=== PATIENT | female | born 1960 | race Caucasian/White ===

== ENCOUNTER → 2018-01-02 | Outpatient (CLI) | payer BC ==
--- NOTE | 2018-01-02 16:33 | Diagnostic Imaging Report ---
PROCEDURE: Frontal and lateral views of the chest. COMPARISON: None. INDICATIONS: LOW GRADE FEVER, COUGH FINDINGS: Lines/tubes: None. Lungs: The lungs are well inflated. Small bilateral peribronchial cuffing especially the left infrahilar region. There is no evidence of pneumonia or pulmonary edema. Pleura: There is no pleural effusion or pneumothorax. Heart and mediastinum: The heart and the mediastinum are normal. Bones: No acute bony abnormality. Degenerative changes in the thoracic spine. IMPRESSION: Mild bilateral peribronchial cuffing, likely viral etiology or reactive airway. No focal consolidative pneumonia. Dictated by: Spencer Hooker M.D. on 01/02/2018 at 16:36 Electronically approved by: Spencer Hooker M.D. on 01/02/2018 at 16:36
== END ==
LOC: RAD 16:02
PROVIDERS: ATTEND Urology
DX: R50.9 Fever, unspecified (principal)
CPT/HCPCS: 71046

== ENCOUNTER → 2018-03-14 | Outpatient (CLI) | payer BC ==
[~2018-03-14] MED LIST: FUROSEMIDE INJ 10 MG/ML 4 ML VIAL ONE
--- NOTE | 2018-03-14 09:49 | Diagnostic Imaging Report ---
PROCEDURE:X-RAY ABDOMEN - KUB COMPARISON:None. INDICATIONS:CALCULUS OF KIDNEY FINDINGS: Calcifications measuring 1.2 and 0.8 cm project over the upper pole of the left renal shadow, though they are superimposed over the left 11th rib. No additional suspicious calcifications project over the renal shadows or expected ureteral courses. Multiple pelvic phleboliths. Bowel gas pattern is nonobstructive. No mass effect or organomegaly. Regional skeletal structures are intact. CONCLUSION: Suspected left upper pole renal calculi measure up to 1.2 cm. Dictated by: Ar Ireland M.D. on 03/14/2018 at 9:54 Electronically approved by: Ar Ireland M.D. on 03/14/2018 at 9:54
--- NOTE | 2018-03-14 20:17 | Diagnostic Imaging Report ---
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 Lasix 40 mg was administered intravenously at 10 minutes post injection of the tracer. Report: Left kidney: Perfusion of the left kidney is prompt. The kidney has reniform shape with thinning of the renal cortex and slightly irregular contours. The kidney is mildly reduced in size. Extraction of tracer from the blood pool is decreased. Clearance of tracer from the renal parenchyma is prompt. The pelvicalyceal system does not appear dilated; the calices are slightly prominent. Physiologic pooling of tracer within the pelvicalyceal system is seen. Drainage of tracer from the pelvicalyceal system is prompt and adequate prior to administration of Lasix. No significant stasis of tracer is seen within the left ureter. Right kidney: Perfusion to the right kidney is prompt. The right kidney has a normal reniform shape. Extraction of tracer by the renal parenchyma is normal. Clearance of tracer from the renal parenchyma is prompt. The pelvicalyceal system is not dilated. Physiologic pooling of tracer within the pelvicalyceal system is seen. Drainage of tracer from the pelvicalyceal system is prompt and adequate prior to administration of Lasix. No significant stasis of tracer is seen within the right ureter. Differential renal function: The left kidney contributes 37% of total renal function and the right kidney contributes 62% (normal 43-57%). Impression: 1. Significant loss of renal parenchyma in the left kidney accounts for the decreased differential function of 37%. The function of the remaining renal parenchyma in the left kidney is generally normal. No hydronephrosis is present. No physiologically significant obstruction of the renal collecting system is present. 2. The function of the right kidney is generally normal. No hydronephrosis is present. No physiologically significant obstruction of the renal collecting system is present. Signed by: Dr. Anne Marie Burrows M.D. on 03/14/2018 8:14 PM
== END ==
LOC: NM 08:13
PROVIDERS: ATTEND Urology
DX: N20.0 Calculus of kidney (principal)
CPT/HCPCS: 74018; 78708; A9562; J1940

== ENCOUNTER → 2018-05-28 | Outpatient (CLI) | payer BC ==
--- NOTE | 2018-05-28 11:40 | Diagnostic Imaging Report ---
PROCEDURE: CT ABDOMEN AND PELVIS WITHOUT CONTRAST TECHNIQUE: The abdomen and pelvis were scanned utilizing a multidetector helical scanner from the diaphragm to the lesser trochanter after the oral administration of 250 cc of water. No IV contrast was administered per renal stone protocol. Coronal and sagittal multiplanar reformations were obtained. COMPARISON: KUB 03/14/2018. INDICATIONS: URINARY CALCULI FINDINGS: ABSENCE OF INTRAVENOUS CONTRAST DECREASES SENSITIVITY FOR DETECTION OF FOCAL LESIONS AND VASCULAR PATHOLOGY. LOWER THORAX: Patchy dependent atelectasis. HEPATOBILIARY: No focal hepatic lesions. No biliary ductal dilatation. SPLEEN: No splenomegaly. PANCREAS: No focal masses or ductal dilatation. ADRENALS: No adrenal nodules. KIDNEYS/URETERS: No hydronephrosis or solid mass lesions. There are multiple non-obstructive left sided renal stones, largest measuring up to 1 cm and 7 mm in the mid pole. Additional smaller left sided stones measure 3-4 mm. PELVIC ORGANS/BLADDER: The bladder is unremarkable. Calcified phleboliths in the pelvis. PERITONEUM / RETROPERITONEUM: No free air or fluid. LYMPH NODES: No lymphadenopathy. VESSELS: Unremarkable. GI TRACT: No distention or wall thickening. Colonic diverticulosis without CT evidence of diverticulitis. Small hiatal hernia. BONES AND SOFT TISSUES: Mild degenerative changes of the visualized spine. There is approximately 6 mm of anterolisthesis of L4 on L5. IMPRESSION: Bilateral non-obstructive renal stones. No evidence of hydronephrosis or ureteral stone. Dictated by: JOSE CRUZ JARAMILLO M.D. on 05/28/2018 at 11:49 Electronically approved by: JOSE CRUZ JARAMILLO M.D. on 05/28/2018 at 11:49
== END ==
LOC: CT 09:42
PROVIDERS: ATTEND Urology
DX: N20.0 Calculus of kidney (principal)
CPT/HCPCS: 74176

== ENCOUNTER 2018-06-28 19:56 | Inpatient (IN) | payer BC ==
[~2018-06-28] VITALS: Ht 157.5 cm; Wt 65.3 kg
--- OUTSIDE RECORDS SUMMARY | 2018-06-28 19:59 | XMS REPORT ---
Author Author [facility] Address Unknown Phone Unavailable Care Team Providers Care Archivist [employer] Name Role Phone SERGE GONZALEZ Unavailable Unavailable Problems This patient has no known problems. Allergies, Adverse Reactions, Alerts This patient has no known allergies or adverse reactions. Medications This patient has no known medications. Results Test Description Test Time Test Comments Text Results Atomic Results Result Comments CT ABDOMEN/PELVIS WO 2018-05-28 11:49:00 [place] [address] Patient Name: ANABELL GUTIERRES MR #: [id number] : 1960 Age/Sex: 58/F Req #: [id number] Adm Physician: Ordered by: SERGE GONZALEZ MD Report #: [id number] Location: CT Room/Bed: Procedure: [id number] CT/CT ABDOMEN/PELVIS WO Exam Date: 05/28/18 Exam Time: 1005 REPORT STATUS: Signed PROCEDURE: CT ABDOMEN AND PELVIS WITHOUT CONTRAST TECHNIQUE: The abdomen and pelvis were scanned utilizing a multidetector helical scanner from the diaphragm to the lesser trochanter after the oral administration of 250 cc of water. No IV contrast was administered per renal stone protocol. Coronal and sagittal multiplanar reformations were obtained. COMPARISON: KUB 03/14/2018. INDICATIONS: URINARY CALCULI FINDINGS: ABSENCE OF INTRAVENOUS CONTRAST DECREASES SENSITIVITY FOR DETECTION OF FOCAL LESIONS AND VASCULAR PATHOLOGY. LOWER THORAX: Patchy dependent atelectasis. HEPATOBILIARY: No focal hepatic lesions. No biliary ductal dilatation. SPLEEN: No splenomegaly. PANCREAS: No focal masses or ductal dilatation. ADRENALS: No adrenal nodules. KIDNEYS/URETERS: No hydronephrosis or solid mass lesions. There are multiple non-obstructive left sided renal stones, largest measuring up to 1 cm and 7 mm in the mid pole. Additional smaller left sided stones measure 3-4 mm. PELVIC ORGANS/BLADDER: The bladder is unremarkable. Calcified phleboliths in the pelvis. PERITONEUM / RETROPERITONEUM: No free air or fluid. LYMPH NODES: No lymphadenopathy. VESSELS: Unremarkable. GI TRACT: No distention or wall thickening. Colonic diverticulosis without CT evidence of diverticulitis. Small hiatal hernia. BONES AND SOFT TISSUES: Mild degenerative changes of the visualized spine. There is approximately 6 mm of anterolisthesis of L4 on L5. IMPRESSION: Bilateral non-obstructive renal stones. No evidence of hydronephrosis or ureteral stone. Dictated by: JOSE CRUZ JARAMILLO M.D. on 05/28/2018 at 11:49 Electronically approved by: JOSE CRUZ JARAMILLO M.D. 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 Lasix 40 mg was administered intravenously at 10 minutes post injection of the tracer. Report: Left kidney: Perfusion of the left kidney is prompt. The kidney has reniform shape with thinning of the renal cortex and slightly irregular contours. The kidney is mildly reduced in size. Extraction of tracer from the blood pool is decreased. Clearance of tracer from the renal parenchyma is prompt. The pelvicalyceal system does not appear dilated; the calices are slightly prominent. Physiologic pooling of tracer within the pelvicalyceal system is seen. Drainage of tracer from the pelvicalyceal system is prompt and adequate prior to administration of Lasix. No significant stasis of tracer is seen within the left ureter. Right kidney: Perfusion to the right kidney is prompt. The right kidney has a normal reniform shape. Extraction of tracer by the renal parenchyma is normal. Clearance of tracer from the renal parenchyma is prompt. The pelvicalyceal system is not dilated. Physiologic pooling of tracer within the pelvicalyceal system is seen. Drainage of tracer from the pelvicalyceal system is prompt and adequate prior to administration of Lasix. No significant stasis of tracer is seen within the right ureter. Differential renal function: The left kidney contributes 37% of total renal function and the right kidney contributes 62% (normal 43-57%). Impression: 1. Significant loss of renal parenchyma in the left kidney accounts for the decreased differential function of 37%. The function of the remaining renal parenchyma in the left kidney is generally normal. No hydronephrosis is present. No physiologically significant obstruction of the renal collecting system is present. 2. The function of the right kidney is generally normal. No hydronephrosis is present. No physiologically significant obstruction of the renal collecting system is present. Signed by: Dr. Stephanie Burrows M.D. on 03/14/2018 8:14 PM Dictated By: STEPHANIE BURROWS MD 2014 Transcribed By: JONATHAN on 03/14/182013 COPY TO: SERGE GONZALEZ MD ABDOMEN-1VIEW (KUB) 2018-03-14 09:54:00 [place] [address] Patient Name: ANABELL GUTIERRES MR #: [id number] : 1960 Age/Sex: 57/F Req #: [id number] Adm Physician: Ordered by: SERGE GONZALEZ MD Report #: [id number] Location: [place] Room/Bed: Procedure: [id number] DX/ABDOMEN-1VIEW (KUB) Exam Date: 03/14/18 Exam Time: 919 REPORT STATUS: Signed PROCEDURE: X-RAY ABDOMEN - KUB COMPARISON: None. INDICATIONS: CALCULUS OF KIDNEY FINDINGS: Calcifications measuring 1.2 and 0.8 cm project over the upper pole of the left renal shadow, though they are superimposed over the left 11th rib. No additional suspicious calcifications project over the renal shadows or expected ureteral courses. Multiple pelvic phleboliths. Bowel gas pattern is nonobstructive. No mass effect or organomegaly. Regional skeletal structures are intact. CONCLUSION: Suspected left upper pole renal calculi measure up to 1.2 cm. Dictated by: Amelia Decker M.D. on 03/14/2018 at 9:54 Electronically approved by: Amelia Decker M.D. on 03/14/2018 at 9:54 Dictated By: AMELIA DECKER MD 3 Transcribed By: TOOTIE on 03/14/18953 COPY TO: SERGE GONZALEZ MD CHEST [address], [place] [address] Patient Name: ANABELL GUTIERRES MR #: [id number] : 1960 Age/Sex: 57/F Req #: [id number] [facility] Physician: Ordered by: SERGE GONZALEZ MD Report #: [id number] Location: [facility] Room/Bed: Procedure: [id number] DX/CHEST 2 VIEWS Exam Date: 01/02/18 Exam Time: 1615 REPORT STATUS: Signed PROCEDURE: Frontal and lateral views of the chest. COMPARISON: None. INDICATIONS: LOW GRADE FEVER, COUGH FINDINGS: Lines/tubes: None. Lungs: The lungs are well inflated. Small bilateral peribronchial cuffing especially the left infrahilar region. There is no evidence of pneumonia or pulmonary edema. Pleura: There is no pleural effusion or pneumothorax. Heart and mediastinum: The heart and the mediastinum are normal. Bones: No acute bony abnormality. Degenerative changes in the thoracic spine. IMPRESSION: Mild bilateral peribronchial cuffing, likely viral etiology or reactive airway. No focal consolidative pneumonia. Dictated by: Hans Mo M.D. on 01/02/2018 at 16:36 Electronically approved by: Hans Mo M.D. on 01/02/2018 at 16:36 Dictated By: HANS MO MD 1636 Transcribed By: TOOTIE on 01/02/18 1636 COPY TO: SERGE GONZALEZ MD
--- NOTE | 2018-06-28 21:50 | Diagnostic Imaging Report ---
EXAM: CT Abdomen and Pelvis WITHOUT contrast INDICATION: Flank pain, status post lithotripsy today. COMPARISON: None. TECHNIQUE: Abdomen and pelvis were scanned utilizing a multidetector helical scanner from the lung base to the pubic symphysis without administration of IV contrast. Absence of intravenous contrast decreases sensitivity for detection of focal lesions and vascular pathology. Coronal and sagittal reformations were obtained. Routine protocol was performed. IV CONTRAST: None ORAL CONTRAST: Water COMPLICATIONS: None RADIATION DOSE: Total DLP: 316.6 mGy*cm Estimated effective dose: (DLP x 0.015 x size factor) mSv CTDIvol has been reviewed. It is below the limits set by the Radiation Protocol Committee (RPC). Dose modulation, iterative reconstruction, and/or weight based adjustment of the mA/kV was utilized to reduce the radiation dose to as low as reasonably achievable. FINDINGS: LINES and TUBES: None. LOWER THORAX: Mild bibasilar atelectasis, left greater the right. HEPATOBILIARY: No focal hepatic lesions. No biliary ductal dilation. GALLBLADDER: No radio-opaque stones or sludge. No wall thickening. SPLEEN: No splenomegaly. PANCREAS: No focal masses or ductal dilatation. Stranding in the region of the pancreatic tail also likely related to left renal findings. ADRENALS: No adrenal nodules KIDNEYS/URETERS: No hydronephrosis. No cystic or solid mass lesions. Multiple punctate calculi in the left kidney including an approximately 1.3 x 0.5 cm stone in the left interpolar region and extending into the infundibulum. Large subcapsular hematoma surrounding the left kidney measuring approximately 4.3 cm in thickness and 9.4 cm in transverse dimension. Small extracapsular hemorrhage also seen anterior perinephric space and tracking into the left pelvis. Unable to exclude superimposed urine leak in the setting of surrounding fluid. GI TRACT: No abnormal distention, wall thickening, or evidence of bowel obstruction. There are diverticula within the colon without evidence of diverticulitis. Appendix is normal. PELVIC ORGANS/BLADDER: Unremarkable. LYMPH NODES: No lymphadenopathy. VESSELS: Unremarkable. PERITONEUM / RETROPERITONEUM: No free air. Small amount of free fluid in the left pelvis and cul-de-sac BONES: There are degenerative changes in the lumbar spine. Grade 1 anterolisthesis of L4 on L5 without pars defect. SOFT TISSUES: Unremarkable. IMPRESSION: 1. Large subcapsular hematoma surrounding and compressing the left kidney with small extracapsular component extending into the left pelvis. 2. Multiple stones in the left kidney without ureteral stone or hydronephrosis. 3. Stranding in the region of the pancreatic tail also likely related to the left renal findings. If there is concern for pancreatitis, consider correlation with lipase. 4. Colonic diverticulosis. Findings discussed with Dr. Kaye on 06/28/2018 at 9:40 PM. Signed by: DR. Alec Interiano MD on 06/28/2018 9:46 PM
[2018-06-28 21:53] LABS: BASOPHILS % 0.1 % (0.0-1.0); HEMATOCRIT 32.3 % (34.2-44.1); LYMPHOCYTES # (AUTO) 0.7 (1.0-3.2); LYMPHOCYTES % 7.2 % (18.0-39.1); MEAN CORPUSCULAR HEMOGLOBIN 31.1 pg (28-32); MEAN CORPUSCULAR HGB CONC 34.1 g/dL (31-35); MEAN CORPUSCULAR VOLUME 91.2 fL (81-99); MONOCYTES # (AUTO) 0.1 (0.2-0.8); MONOCYTES % 1.2 % (4.4-11.3); NEUTROPHILS # (AUTO) 8.4 (2.1-6.9); NEUTROPHILS % 91.2 % (38.7-80.0); PLATELET COUNT 310 x10e3/uL (140-360); RED BLOOD COUNT 3.54 x10e6/uL (3.6-5.1); RED CELL DISTRIBUTION WIDTH 13.4 % (11.7-14.4)
[2018-06-28] MEDS ORDERED: MORPHINE SULFATE 2 MG/ML SYR IV STA (22:06)
[2018-06-28] MEDS ORDERED: ONDANSETRON HCL INJ 2 MG/ML VIAL IV STA (22:06)
[2018-06-28 22:10] LABS: ALANINE AMINOTRANSFERASE 15 IU/L (0-55); ALBUMIN 3.6 g/dL (3.5-5.0); ALBUMIN/GLOBULIN RATIO 1.2 (0.8-2.0); ALKALINE PHOSPHATASE 68 IU/L (40-150); ANION GAP 14.4 mmol/L (8-16); BLOOD UREA NITROGEN 15 mg/dL (7-26); BUN/CREATININE RATIO 16 (6-25); CALCIUM 9.1 mg/dL (8.4-10.2); CARBON DIOXIDE 25 mmol/L (22-29); CHLORIDE 98 mmol/L (98-107); CREATININE, SERUM 0.92 mg/dL (0.57-1.11); EST GLOMERULAR FILTRATION RATE > 60 ML/MIN (60-); GLUCOSE 260 mg/dL (74-118); POTASSIUM 3.4 mmol/L (3.5-5.1); SODIUM 134 mmol/L (136-145)
[2018-06-28] MEDS ORDERED: SODIUM CHLORIDE 0.9% 1000ML 1,000 ML IV SCH (22:15)
[2018-06-28 22:17] LABS: CLARITY,URINE CLOUDY (CLEAR)
[2018-06-28 22:18] LABS: LEUKOCYTE ESTERASE ,URINE 1+ (NEGATIVE); NITRITE,URINE NEGATIVE (NEGATIVE)
[2018-06-28 22:19] LABS: BILIRUBIN,URINE NEGATIVE (NEGATIVE); KETONES,URINE NEGATIVE (NEGATIVE); PROTEIN,URINE DIPSTICK TRACE (NEGATIVE); URINE UROBILINOGEN 0.2 mg/dL (0.2 - 1)
[2018-06-28 22:34] LABS: RBC,URINE >50 /HPF (0-5)
[2018-06-28 22:35] LABS: BACTERIA,URINE FEW /HPF; COLOR,URINE RED (YELLOW); EPITHELIAL CELLS,URINE RARE /LPF
[2018-06-28] MEDS ORDERED: ULTRAM 50MG50 MG PO (22:35)
[2018-06-28] MEDS ORDERED: TRIAMTERENE-HCTZ1 EA PO (22:35)
[2018-06-28] MEDS ORDERED: AMLODIPINE BES2.5 MG PO (22:35)
[2018-06-28] MEDS ORDERED: RANITIDINE HCL150 MG PO (22:35)
[2018-06-28] MEDS: MEROPENEM 500MG 500 MG in SODIUM CHLORIDE 0.9% 50ML 50 ML IV SCH (23:11)
[2018-06-29] VITALS (38 sets, daily range): BP systolic 105–133; BP diastolic 66–95
[2018-06-29] MEDS: MORPHINE SULFATE 2 MG/ML SYR IV PRN ×2 (02:08→17:47)
[2018-06-29] MEDS: ONDANSETRON HCL INJ 2 MG/ML VIAL IV PRN ×3 (02:08→17:47)
[2018-06-29] MEDS: SODIUM CHLORIDE 0.9% 1000ML 1,000 ML IV SCH ×2 (02:08→11:07)
[2018-06-29 02:51] LABS: HEMATOCRIT 28.3 % (34.2-44.1); HEMOGLOBIN 9.6 g/dL (12.0-16.0)
[2018-06-29 05:58] LABS: HEMATOCRIT 26.9 % (34.2-44.1)
[2018-06-29 06:20] LABS: ALANINE AMINOTRANSFERASE 12 IU/L (0-55); ALBUMIN 3.3 g/dL (3.5-5.0); ALBUMIN/GLOBULIN RATIO 1.3 (0.8-2.0); ALKALINE PHOSPHATASE 57 IU/L (40-150); BLOOD UREA NITROGEN 13 mg/dL (7-26); BUN/CREATININE RATIO 16 (6-25); CALCIUM 8.4 mg/dL (8.4-10.2); CARBON DIOXIDE 25 mmol/L (22-29); CHLORIDE 102 mmol/L (98-107); CREATININE, SERUM 0.79 mg/dL (0.57-1.11); EST GLOMERULAR FILTRATION RATE > 60 ML/MIN (60-); GLUCOSE 125 mg/dL (74-118); SODIUM 137 mmol/L (136-145)
[2018-06-29] MEDS ORDERED: MEROPENEM 500 MG VIAL ONE (10:56)
[2018-06-29] MEDS ORDERED: SODIUM CHLORIDE 0.9% 50ML 50 ML ONE (10:58)
[2018-06-29] MEDS: MEROPENEM 500MG 500 MG in SODIUM CHLORIDE 0.9% 50ML 50 ML IV SCH (11:06)
[2018-06-29 11:47] LABS: HEMATOCRIT 24.2 % (34.2-44.1); HEMOGLOBIN 8.4 g/dL (12.0-16.0)
[2018-06-29] MEDS ORDERED: MEROPENEM 500MG/ NS 50ML 50 ML IV SCH (13:45)
[2018-06-29] MEDS ORDERED: HYDROCODONE/APAP 7.5MG-325MG 1 EA TAB PO PRN (14:30)
[2018-06-29 18:10] LABS: HEMATOCRIT 26.1 % (34.2-44.1); HEMOGLOBIN 8.9 g/dL (12.0-16.0)
[2018-06-29] MEDS: SODIUM CHLORIDE 0.45% 1,000 ML IV SCH (20:30)
[2018-06-29] MEDS: MEROPENEM 500MG/ NS 50ML 50 ML IV SCH (22:27)
[2018-06-30] VITALS (8 sets, daily range): BP systolic 111–138; BP diastolic 63–83
[2018-06-30] MEDS: SODIUM CHLORIDE 0.45% 1,000 ML IV SCH (06:00)
[2018-06-30 06:16] LABS: BASOPHILS % 0.3 % (0.0-1.0); EOSINOPHILS # (AUTO) 0.1 (0.0-0.4); EOSINOPHILS % 1.2 % (0.0-6.0); HEMATOCRIT 24.5 % (34.2-44.1); HEMOGLOBIN 8.3 g/dL (12.0-16.0); LYMPHOCYTES # (AUTO) 2.4 (1.0-3.2); MEAN CORPUSCULAR HEMOGLOBIN 31.7 pg (28-32); MEAN CORPUSCULAR HGB CONC 33.9 g/dL (31-35); MEAN CORPUSCULAR VOLUME 93.5 fL (81-99); MONOCYTES # (AUTO) 0.5 (0.2-0.8); MONOCYTES % 7.1 % (4.4-11.3); NEUTROPHILS # (AUTO) 3.7 (2.1-6.9); NEUTROPHILS % 54.9 % (38.7-80.0); PLATELET COUNT 210 x10e3/uL (140-360); RED BLOOD COUNT 2.62 x10e6/uL (3.6-5.1); RED CELL DISTRIBUTION WIDTH 13.6 % (11.7-14.4)
[2018-06-30 06:37] LABS: ALANINE AMINOTRANSFERASE 8 IU/L (0-55); ALBUMIN 3.2 g/dL (3.5-5.0); ALBUMIN/GLOBULIN RATIO 1.2 (0.8-2.0); ALKALINE PHOSPHATASE 53 IU/L (40-150); ANION GAP 12.9 mmol/L (8-16); BLOOD UREA NITROGEN 10 mg/dL (7-26); BUN/CREATININE RATIO 12 (6-25); CALCIUM 8.4 mg/dL (8.4-10.2); CARBON DIOXIDE 27 mmol/L (22-29); CHLORIDE 102 mmol/L (98-107); CREATININE, SERUM 0.81 mg/dL (0.57-1.11); EST GLOMERULAR FILTRATION RATE > 60 ML/MIN (60-); GLUCOSE 100 mg/dL (74-118); SODIUM 139 mmol/L (136-145)
[2018-06-30 06:43] LABS: POTASSIUM 2.9 mmol/L (3.5-5.1)
[2018-06-30] MEDS ORDERED: POTASSIUM CHLORIDE 20MEQ/100ML 200 ML IV ONE (07:15)
[2018-06-30] MEDS ORDERED: POTASSIUM CHLORIDE 20 MEQ TAB CR PO ONE (08:00)
[2018-06-30] MEDS: MEROPENEM 500MG/ NS 50ML 50 ML IV SCH ×2 (11:00→22:23)
[2018-06-30 11:54] LABS: BASOPHILS % 0.3 % (0.0-1.0); EOSINOPHILS # (AUTO) 0.1 (0.0-0.4); HEMATOCRIT 26.5 % (34.2-44.1); HEMOGLOBIN 8.9 g/dL (12.0-16.0); LYMPHOCYTES # (AUTO) 1.5 (1.0-3.2); LYMPHOCYTES % 23.1 % (18.0-39.1); MEAN CORPUSCULAR HEMOGLOBIN 31.7 pg (28-32); MEAN CORPUSCULAR HGB CONC 33.6 g/dL (31-35); MEAN CORPUSCULAR VOLUME 94.3 fL (81-99); MONOCYTES # (AUTO) 0.4 (0.2-0.8); MONOCYTES % 5.5 % (4.4-11.3); NEUTROPHILS # (AUTO) 4.7 (2.1-6.9); NEUTROPHILS % 69.7 % (38.7-80.0); PLATELET COUNT 225 x10e3/uL (140-360); RED BLOOD COUNT 2.81 x10e6/uL (3.6-5.1); RED CELL DISTRIBUTION WIDTH 13.6 % (11.7-14.4)
[2018-06-30 12:11] LABS: ANION GAP 11.9 mmol/L (8-16); BLOOD UREA NITROGEN 9 mg/dL (7-26); BUN/CREATININE RATIO 12 (6-25); CARBON DIOXIDE 24 mmol/L (22-29); CHLORIDE 107 mmol/L (98-107); CREATININE, SERUM 0.76 mg/dL (0.57-1.11); EST GLOMERULAR FILTRATION RATE > 60 ML/MIN (60-); GLUCOSE 112 mg/dL (74-118); POTASSIUM 3.9 mmol/L (3.5-5.1); SODIUM 139 mmol/L (136-145)
[2018-06-30] MEDS: SENNOSIDES 8.6 MG TAB PO SCH ×2 (12:19→16:40)
[2018-06-30 16:49] LABS: ANION GAP 13.8 mmol/L (8-16); BLOOD UREA NITROGEN 8 mg/dL (7-26); BUN/CREATININE RATIO 11 (6-25); CARBON DIOXIDE 24 mmol/L (22-29); CHLORIDE 106 mmol/L (98-107); CREATININE, SERUM 0.72 mg/dL (0.57-1.11); EST GLOMERULAR FILTRATION RATE > 60 ML/MIN (60-); GLUCOSE 95 mg/dL (74-118); POTASSIUM 3.8 mmol/L (3.5-5.1); SODIUM 140 mmol/L (136-145)
[2018-07-01] VITALS: BP 136/85
[2018-07-01] MEDS: POTASSIUM CHL 40 MEQ in SODIUM CHLORIDE 0.45% 1,000 ML IV SCH ×2 (03:51→12:39)
[2018-07-01 04:00] VITALS: BP 136/91
[2018-07-01 06:19] LABS: BASOPHILS % 0.3 % (0.0-1.0); EOSINOPHILS # (AUTO) 0.1 (0.0-0.4); EOSINOPHILS % 1.3 % (0.0-6.0); HEMATOCRIT 26.1 % (34.2-44.1); HEMOGLOBIN 8.6 g/dL (12.0-16.0); LYMPHOCYTES # (AUTO) 1.8 (1.0-3.2); LYMPHOCYTES % 29.3 % (18.0-39.1); MEAN CORPUSCULAR HEMOGLOBIN 30.8 pg (28-32); MEAN CORPUSCULAR VOLUME 93.5 fL (81-99); MONOCYTES # (AUTO) 0.4 (0.2-0.8); MONOCYTES % 7.1 % (4.4-11.3); NEUTROPHILS # (AUTO) 3.8 (2.1-6.9); NEUTROPHILS % 61.7 % (38.7-80.0); PLATELET COUNT 241 x10e3/uL (140-360); RED BLOOD COUNT 2.79 x10e6/uL (3.6-5.1); RED CELL DISTRIBUTION WIDTH 13.7 % (11.7-14.4)
[2018-07-01 06:27] LABS: ANION GAP 11.2 mmol/L (8-16); BLOOD UREA NITROGEN 7 mg/dL (7-26); BUN/CREATININE RATIO 10 (6-25); CARBON DIOXIDE 24 mmol/L (22-29); CHLORIDE 108 mmol/L (98-107); CREATININE, SERUM 0.73 mg/dL (0.57-1.11); EST GLOMERULAR FILTRATION RATE > 60 ML/MIN (60-); GLUCOSE 101 mg/dL (74-118); MAGNESIUM 2.3 MG/DL (1.3-2.1); POTASSIUM 4.2 mmol/L (3.5-5.1); SODIUM 139 mmol/L (136-145)
[2018-07-01] MEDS ORDERED: MORPHINE SULFATE INJ 4 MG/ML INJ IV PRN (09:00)
[2018-07-01] MEDS: SENNOSIDES 8.6 MG TAB PO SCH (09:00)
[2018-07-01 09:14] VITALS: BP 137/88
[2018-07-01 09:18] VITALS: BP 137/88
--- NOTE | 2018-07-01 10:56 | Discharge Summary ---
WASTE MANAGEMENT ENGINEER: Dr. Jimmy Jackson. FINAL DIAGNOSES 1. Left kidney capsular hematoma, status post lithotripsy. 2. Acute blood loss anemia, stable now. 3. Urinary tract infection associated with hematuria. 4. Status post stone management by Dr. Jimmy Jackson. SUMMARY: A 58-year-old female status post stone management with lithotripsy. Patient subsequently developed severe pain to the left flank area. CT scan showed hematoma. She has blood loss anemia. Hemoglobin and hematocrit now are 8.6 and 26.1, which are stable. No further noticed of bleeding. The patient is stable. She is comfortable and pain controlled. Patient would like to go home and I agree. The patient may follow up with Dr. Jimmy Jackson as an outpatient. DISCHARGE MEDICATIONS: As follows: 1. Resume home medications. 2. Cipro 500 mg b.i.d. for 5 days. 3. Hemocyte +1 tablet daily. 4. Zofran ODT 4 mg sublingual q.6 p.r.n. for nausea and vomiting. 5. Tylenol No. 3 one q.6 hours p.r.n. for pain. Patient is stable, discharged home, follow up with Dr. Jimmy Jackson. Job#: [id number] NAKUL
[2018-07-01] MEDS: MEROPENEM 500MG/ NS 50ML 50 ML IV SCH (11:10)
[2018-07-01 12:00] VITALS: BP 136/85
[2018-07-01] MEDS ORDERED: CIPRO500 MG PO (12:13)
[2018-07-01] MEDS ORDERED: ZOFRAN ODT4 MG SL (12:16)
[2018-07-01] MEDS ORDERED: TYLENOL WITH C1 EACH PO (12:16)
== END 2018-07-01 13:34 | disposition home or self-care (01) | DRG 919 ==
LOC: ER 19:56 → ERHOLD 22:59 → ICU 06-29 04:08 → MED/SURG 06-29 15:24 → ICU 06-29 15:25 → MED/SURG 06-29 15:35
PROVIDERS: ADMIT Internal Medicine; ATTEND Internal Medicine
DX: N99.840 Postprocedural hematoma of a genitourinary system organ or structure following a genitourinary system procedure (principal); S37.092A Other injury of left kidney, initial encounter; S36.899A Unspecified injury of other intra-abdominal organs, initial encounter; D62 Acute posthemorrhagic anemia; E87.1 Hypo-osmolality and hyponatremia; N39.0 Urinary tract infection, site not specified; E87.6 Hypokalemia; E83.41 Hypermagnesemia; R31.9 Hematuria, unspecified; Z87.442 Personal history of urinary calculi
CPT/HCPCS: 36415; 74176; 80048; 80053; 81001; 83735; 84100; 85014; 85018; 85025; 86850; 86900; 87086; 96374; 96375; 96376; 99284; J2185; J2270; J2405; J3480; J7030

== ENCOUNTER → 2018-07-04 | Outpatient (CLI) | payer BC ==
[~2018-07-04] MED LIST changes: +AMLODIPINE BES2.5 MG PO; +CIPRO500 MG PO; -FUROSEMIDE INJ 10 MG/ML 4 ML VIAL ONE; +RANITIDINE HCL150 MG PO; +TRIAMTERENE-HCTZ1 EA PO; +TYLENOL WITH C1 EACH PO; +ULTRAM 50MG50 MG PO; +ZOFRAN ODT4 MG SL
[2018-07-04 07:49] LABS: BASOPHILS % 0.4 % (0.0-1.0); EOSINOPHILS # (AUTO) 0.1 (0.0-0.4); EOSINOPHILS % 0.8 % (0.0-6.0); HEMATOCRIT 33.3 % (34.2-44.1); HEMOGLOBIN 11.3 g/dL (12.0-16.0); LYMPHOCYTES # (AUTO) 2.4 (1.0-3.2); LYMPHOCYTES % 27.4 % (18.0-39.1); MEAN CORPUSCULAR HEMOGLOBIN 31.6 pg (28-32); MEAN CORPUSCULAR HGB CONC 33.9 g/dL (31-35); MONOCYTES % 10.7 % (4.4-11.3); NEUTROPHILS # (AUTO) 5.4 (2.1-6.9); NEUTROPHILS % 60.4 % (38.7-80.0); PLATELET COUNT 345 x10e3/uL (140-360); RED BLOOD COUNT 3.58 x10e6/uL (3.6-5.1); RED CELL DISTRIBUTION WIDTH 13.4 % (11.7-14.4)
[2018-07-04 08:05] LABS: ALANINE AMINOTRANSFERASE 9 IU/L (0-55); ALBUMIN/GLOBULIN RATIO 1.2 (0.8-2.0); ALKALINE PHOSPHATASE 88 IU/L (40-150); ANION GAP 15.2 mmol/L (8-16); BLOOD UREA NITROGEN 12 mg/dL (7-26); BUN/CREATININE RATIO 14 (6-25); CALCIUM 9.2 mg/dL (8.4-10.2); CARBON DIOXIDE 25 mmol/L (22-29); CHLORIDE 96 mmol/L (98-107); CREATININE, SERUM 0.87 mg/dL (0.57-1.11); EST GLOMERULAR FILTRATION RATE > 60 ML/MIN (60-); GLUCOSE 95 mg/dL (74-118); MAGNESIUM 2.1 MG/DL (1.3-2.1); POTASSIUM 3.2 mmol/L (3.5-5.1); SODIUM 133 mmol/L (136-145)
[2018-07-04 08:14] LABS: INR 0.88; PARTIAL THROMBOPLASTIN TIME 29.1 seconds (23.8-35.5); PROTHROMBIN TIME 12.8 seconds (11.9-14.5)
== END ==
LOC: LAB 07:37
PROVIDERS: ATTEND Urology
DX: D64.9 Anemia, unspecified (principal); N20.0 Calculus of kidney
CPT/HCPCS: 36415; 80053; 83735; 85025; 85610; 85730

== ENCOUNTER → 2018-08-07 | Outpatient (CLI) | payer BC ==
[~2018-08-07] MED LIST changes: +FUROSEMIDE INJ 10 MG/ML 4 ML VIAL ONE
--- NOTE | 2018-08-07 13:35 | Diagnostic Imaging Report ---
EXAMINATION: CT of the abdomen and pelvis without contrast. TECHNIQUE: Spiral CT images of the abdomen and pelvis were performed from the lung bases to the lesser trochanters. No intravenous contrast was given per renal stone protocol. Coronal and sagittal reformatted images were obtained. Dose modulation, iterative reconstruction, and/or weight based adjustment of the mA/kV was utilized to reduce the radiation dose to as low as reasonably achievable. Low dose reduction parameters were utilized. DLP: 603.91 mGy-cm COMPARISON: 06/28/2018 CLINICAL HISTORY:Left perinephric and subcapsular hematoma DISCUSSION: ABSENCE OF INTRAVENOUS CONTRAST DECREASES SENSITIVITY FOR DETECTION OF FOCAL LESIONS AND VASCULAR PATHOLOGY. ABDOMEN/PELVIS: LOWER THORAX: Unremarkable. HEPATOBILIARY:No focal hepatic lesions. No biliary ductal dilation. The gallbladder is normal. SPLEEN: No splenomegaly. PANCREAS: No focal masses or ductal dilatation. Pancreatic stranding is decreased. ADRENALS: No adrenal nodules. KIDNEYS/URETERS: The size of the left subcapsular/perinephric hematoma is significantly decreased compared to prior. Estimated maximal width is 3.2 cm from the lateral margin of the kidney. The amount of stone burden on the left is also diminished. PELVIC ORGANS/BLADDER: The bladder is normal. PERITONEUM/RETROPERITONEUM: No free air or fluid. LYMPH NODES: No intra-abdominal,retroperitoneal, pelvic or inguinal lymphadenopathy. VESSELS: Unremarkable GI TRACT: No distention or wall thickening. Scattered colonic diverticula. BONES AND SOFT TISSUES: No bony destructive lesions. Anterior listhesis of L4 on L5. Scattered degenerative spurring of the spine. No soft tissue abnormalities. IMPRESSION: 1. Decrease in the size of the left subcapsular renal hematoma. 2. Decrease in the stone burden on the left. Signed by: Dr. Rei De La Cruz DO on 08/07/2018 1:32 PM
--- NOTE | 2018-08-07 20:42 | Diagnostic Imaging Report ---
Renal Scan with Lasix Washout Clinical information: Renal calculi; staghorn calculus Comparison: Renal scan with Lasix 03/14/2018 Technique: Following intravenous administration of 10 mCi of Tc-99m MAG3, dynamic images of the kidneys in the posterior projection were obtained through 40 minutes. Lasix 40 mg was administered intravenously at 12 minutes post injection of the tracer. Report: Left kidney: Perfusion of the left kidney is prompt. The kidney now has a slightly elongated, non-reniform shape with with moderately thinning of the renal cortex and slightly irregular contours. The kidney is reduced in size and the volume of renal parenchyma appears significantly decreased compared to the prior study of 03/14/2018. Extraction of tracer from the blood pool is decreased. Clearance of tracer from the renal parenchyma is prompt. The pelvicalyceal system does not appear dilated; calices in the upper and lower poles are again slightly prominent. Some pooling of tracer is seen within the calices but none is seen in the renal pelvis. Some drainage of tracer from the pelvicalyceal system is seen prior to administration of Lasix. Washout of tracer from the pelvicalyceal system following administration of Lasix is adequate with a T-1/2 of 6 minutes (normal <15 minutes). No significant stasis of tracer is seen within the left ureter. Right kidney: Perfusion to the right kidney is prompt. The right kidney has a normal reniform shape. Extraction of tracer by the renal parenchyma is normal. Clearance of tracer from the renal parenchyma is prompt. In the interval since the prior study, caliectasis has developed throughout the kidney although the renal pelvis does not appear dilated at all. Increased pooling of tracer is seen within the dilated calices. Significant drainage of tracer from the pelvicalyceal system is seen prior to administration of Lasix. Washout of tracer from the pelvicalyceal system following administration of Lasix is rapid with a T-1/2 of 3 minutes (normal less than 15 minutes). No significant stasis of tracer is seen within the right ureter. Differential renal function: The left kidney contributes 26% of total renal function and the right kidney contributes 74% (normal 43-57%) based on uptake interval, previously left 30% and right 70% based on uptake interval (based on perfusion only left 32% and right 68% compared to left 37% and right 63%.) Impression: 1. The appearance of the left kidney has changed compared to the prior study. It no longer has a reniform shape and thinning of the renal cortex is greater. This is reflected in the decreased differential function of 26%, although the decrease from 30% is not statistically significant. Loss of renal parenchyma is suspected based on visual assessment of the kidney. Prominent calices are again seen in the upper and lower poles. Again, he renal pelvis is never fills with tracer during the study so cannot be assessed. Normal washout of tracer from the pelvicaliceal system indicates that physiologically significant obstruction is not present. The prominent calices and thinned cortex are likely the result of reflux. 2. The pelvicalyceal system of the right kidney has undergone significant change since the prior study of 03/14/2018. There are now dilated calyces throughout the kidney although the renal pelvis is not dilated. Visually, this has resulted in loss of renal parenchyma. The normal drainage and washout indicate that physiologically significant obstruction is not present. LIkely cause of interval development of caliectasis is vesicoureteral reflux. 3. Important to note that although the change in differential function by assessment of both perfusion and uptake interval are not statistically different between the two studies, in this case, loss of renal function in both kidneys to the same extent over the same interval will not be reflected in the differential function. Visually, both kidneys appear to have interval loss of renal parenchyma. Signed by: Dr. Anne Marie Burrows M.D. on 08/07/2018 8:39 PM
== END ==
LOC: CT 09:27
PROVIDERS: ATTEND Urology
DX: N20.0 Calculus of kidney (principal); N39.0 Urinary tract infection, site not specified
CPT/HCPCS: 74176; 78708; A9562; J1940

== ENCOUNTER → 2018-09-23 | Outpatient (CLI) | payer BC ==
[~2018-09-23] MED LIST changes: -FUROSEMIDE INJ 10 MG/ML 4 ML VIAL ONE
--- NOTE | 2018-09-23 17:22 | Diagnostic Imaging Report ---
Exam: KUB. Clinical History: Left renal stone Comparison: CT scan 08/07/2018 Findings: Frontal view of the abdomen demonstrates a nonobstructive bowel gas pattern with moderate retained stool. No definite renal stone is seen. No acute bone abnormality. Likely small phleboliths in the pelvis. Impression: No definite urinary tract calcification is seen. Signed by: Dr. Randy Klein M.D. on 09/23/2018 5:18 PM
== END ==
LOC: RAD 16:11
PROVIDERS: ATTEND Urology
DX: N20.0 Calculus of kidney (principal)
CPT/HCPCS: 74018

== ENCOUNTER → 2019-02-25 | Outpatient (CLI) | payer BC ==
--- NOTE | 2019-02-25 13:08 | Diagnostic Imaging Report ---
Exam: KUB - 2 views Clinical History: Renal calculi Comparison: KUB of 09/23/2018 Findings: Nonobstructive bowel gas pattern. No evidence of free intraperitoneal air. No evidence of abnormal calcification. No acute bony abnormality. Impression: No radiographically apparent renal calculi. Signed by: Yeni Reynoso MD on 02/25/2019 1:04 PM
== END ==
LOC: RAD 12:01
PROVIDERS: ATTEND Urology
DX: N20.0 Calculus of kidney (principal)
CPT/HCPCS: 74018

== ENCOUNTER → 2019-07-07 | Outpatient (CLI) | payer OTHER ==
[~2019-07-07] MED LIST changes: +FUROSEMIDE INJ 10 MG/ML 4 ML VIAL ONE
--- NOTE | 2019-07-07 08:53 | Diagnostic Imaging Report ---
Exam: KUB - 2 views Indication: Renal calculus Comparison: KUB of 02/25/2019 Findings: No radiographically apparent renal calculus. Nonobstructive bowel gas pattern. No free air. Phleboliths in the pelvis. Mild degenerative changes of the lower lumbar spine and both hip joints. Impression: No radiographically apparent renal calculi. Signed by: Yeni Reynoso MD on 07/07/2019 8:49 AM
--- NOTE | 2019-07-07 18:47 | Diagnostic Imaging Report ---
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 Rising serum creatinine. Comparison: Renal scan with Lasix 08/07/2018 Technique: Following intravenous administration of 10 mCi of Tc-99m MAG3, dynamic images of the kidneys in the posterior projection were obtained through 40 minutes. Lasix 40 mg was administered intravenously at 10 minutes post injection of the tracer. Report: Left kidney: Perfusion of the left kidney is prompt. The kidney has a slightly elongated, non-reniform shape with with moderately thinning of the renal cortex and slightly irregular contours. The kidney is overall reduced in size but is unchanged in appearance compared to the prior study. Extraction of tracer from the blood pool is decreased. Clearance of tracer from the renal parenchyma is prompt. The pelvicalyceal system does not appear dilated; calices in the upper and lower poles are again slightly prominent. Some pooling of tracer is seen within the calices but none in the renal pelvis. Drainage of tracer from the pelvicalyceal system is adequate prior to administration of Lasix. No significant stasis of tracer is seen within the left ureter. Right kidney: Perfusion to the right kidney is prompt. The right kidney has a reniform shape. Extraction of tracer by the renal parenchyma is normal. Clearance of tracer from the renal parenchyma is prompt. The pelvicalyceal system is mildly dilated. Increased pooling of tracer is seen within the pelvicalyceal system. Significant drainage of tracer from the pelvicalyceal system is seen prior to administration of Lasix. Washout of tracer from the pelvicalyceal system following administration of Lasix is rapid with a T-1/2 of 3 minutes (normal less than 15 minutes). No significant stasis of tracer is seen within the right ureter. Differential renal function: The left kidney contributes 32% of total renal function and the right kidney contributes 68% (normal 43-57%), previously left 24% and right 76%. Impression: 1. The appearance of the left kidney is unchanged compared to the prior renal scan of 08/07/2018 although the differential function has improved from 24% to 32%. No hydronephrosis is present. No physiologically significant obstruction of the renal collecting system is present. The drainage pattern has significantly improved compared to the prior study. This may in part be due to better hydration on today's study. 2. The function of the right kidney is generally normal. Mild hydronephrosis is present. No physiologically significant obstruction of the renal collecting system is present. The appearance of the kidney is unchanged and the drainage pattern is stable to slightly improved, which may be due to better hydration on today's study. Signed by: Dr. Anne Marie Burrows M.D. on 07/07/2019 6:43 PM
== END ==
LOC: NM 07:59
PROVIDERS: ATTEND Urology
DX: N20.0 Calculus of kidney (principal)
CPT/HCPCS: 74018; 78708; A9562; J1940

== ENCOUNTER → 2019-09-29 | Outpatient (CLI) | payer OTHER ==
[~2019-09-29] MED LIST changes: -FUROSEMIDE INJ 10 MG/ML 4 ML VIAL ONE
--- NOTE | 2019-09-29 08:52 | Diagnostic Imaging Report ---
Exam: KUB Comparison: July 07, 2019 Findings: Moderate retained feces are noted throughout the colon obscuring the renal shadow. There is no evidence of radiopaque stones visualized in the region of the kidneys. Multiple round calcific densities are again noted in the pelvic region likely represent phleboliths. The regional osseous structures are unremarkable. Impression: 1. Moderate retained feces. Otherwise, unremarkable KUB. Signed by: Dr. Angel Bishop MD on 09/29/2019 8:49 AM
--- NOTE | 2019-09-29 08:56 | Diagnostic Imaging Report ---
Renal ultrasound Clinical History: UTI Discussion: Sonographic evaluation of the kidneys is performed. The kidneys have normal size and cortical echogenicity. The right kidney measures 10.6 cm in length. The left kidney measures 9.0 cm in length. There is no focal renal mass, or hydronephrosis. A 3 mm echogenic shadowing stone is noted in the interpolar region left kidney. No perinephric fluid collection is seen. Survey images of the bladder demonstrate no abnormality. Impression: 1. There is a 3 mm nonobstructive left nephrolithiasis. Otherwise, unremarkable renal ultrasound. Signed by: Dr. Angel Bishop MD on 09/29/2019 8:54 AM
== END ==
LOC: US 07:52
PROVIDERS: ATTEND Urology
DX: N39.0 Urinary tract infection, site not specified (principal)
CPT/HCPCS: 74018; 76770

== ENCOUNTER → 2019-12-31 | Outpatient (CLI) | payer OTHER ==
--- NOTE | 2019-12-31 10:02 | Diagnostic Imaging Report ---
Exam: KUB - 2 views Indication: Renal calculus Comparison: KUB of 09/29/2019, renal ultrasound of 09/29/2019 Findings: No radiographically apparent renal calculus. Nonobstructive bowel gas pattern. No free air. Phleboliths in the pelvis. No acute osseous injury. Impression: No radiographically apparent renal calculi. Signed by: Yeni Reynoso MD on 12/31/2019 9:55 AM
== END ==
LOC: RAD 07:57
PROVIDERS: ATTEND Urology
DX: N20.0 Calculus of kidney (principal)
CPT/HCPCS: 74018

== ENCOUNTER → 2020-07-12 | Outpatient (CLI) | payer BC ==
--- NOTE | 2020-07-12 11:25 | Diagnostic Imaging Report ---
X-ray abdomen History: Follow-up kidney stones Comparison: None Findings: Study submitted on 2 images. No renal or ureteric calculi. No bladder calculi on this exam. Copious amounts of fecal matter in the colon. Incidental findings: Degenerative disease at L4-L5 level. Nonobstructive bowel gas pattern. No pneumatosis. Impression: No renal, ureteric or bladder calculi seen on this exam. Signed by: Hussein Helms MD on 07/12/2020 11:21 AM
== END ==
LOC: RAD 10:40
PROVIDERS: ATTEND Urology
DX: N20.0 Calculus of kidney (principal)
CPT/HCPCS: 74018

== ENCOUNTER → 2020-11-02 | Outpatient (CLI) | payer BC ==
[~2020-11-02] MED LIST changes: +FUROSEMIDE INJ 10 MG/ML 4 ML VIAL ONE
== END ==
LOC: CT 07:29
PROVIDERS: ATTEND Urology
DX: N20.0 Calculus of kidney (principal)
CPT/HCPCS: 74176; 78708; A9562; J1940

== ENCOUNTER → 2021-03-07 | Outpatient (CLI) | payer BC ==
[~2021-03-07] MED LIST changes: -FUROSEMIDE INJ 10 MG/ML 4 ML VIAL ONE
== END ==
LOC: RAD 11:07
PROVIDERS: ATTEND Urology
DX: N20.0 Calculus of kidney (principal)
CPT/HCPCS: 74018

== ENCOUNTER → 2021-06-06 | Outpatient (CLI) | payer BC | LOC: RAD 10:33 | PROVIDERS: ATTEND Urology | DX: N20.0 Calculus of kidney (principal) | CPT/HCPCS: 74018 ==

== ENCOUNTER → 2021-12-12 | Outpatient (CLI) | payer BC | LOC: RAD 10:08 | PROVIDERS: ATTEND Urology | DX: N20.0 Calculus of kidney (principal) | CPT/HCPCS: 74018 ==

== ENCOUNTER → 2022-03-28 | Outpatient (CLI) | payer BC ==
[~2022-03-28] MED LIST changes: +FUROSEMIDE INJ 10 MG/ML 4 ML VIAL ONE
== END ==
LOC: NM 08:40
PROVIDERS: ATTEND Urology
DX: R31.21 Asymptomatic microscopic hematuria (principal); N20.0 Calculus of kidney; N26.9 Renal sclerosis, unspecified; K57.90 Diverticulosis of intestine, part unspecified, without perforation or abscess without bleeding
CPT/HCPCS: 74176; 78708; A9562; J1940

== ENCOUNTER → 2024-03-11 | Outpatient (REF) | payer BC | LOC: NM 08:13 | PROVIDERS: ATTEND Urology | DX: Z87.442 Personal history of urinary calculi (principal) | CPT/HCPCS: 74018; 78708; A9562; J1940 ==